=== PATIENT | male | born 1970 | race Caucasian/White ===

== ENCOUNTER 2018-05-10 00:32 | Emergency (ER) | payer OTHER ==
[~2018-05-10] VITALS: Ht 182.9 cm; Wt 99.8 kg
--- NOTE | 2018-05-10 00:50 | NUR ---
Pt came in c/o productive cough x 4 days, states he has been feeling "horrible" these past few days. Pt denies any fever, diarrhea, N/V. He is A, O/4, moves all extremities without difficulty, no respiratory distress noted.
[2018-05-10 01:57] VITALS: BP 129/63
--- NOTE | 2018-05-10 01:58 | NUR ---
Patient discharged to home in stable condition. Written and verbal after care instructions given. Patient verbalizes understanding of instruction. Pt ambulatory with a steady gait, VSS.
== END 2018-05-10 01:58 | disposition home or self-care (01) ==
LOC: ER 00:33
DX: J06.9 Acute upper respiratory infection, unspecified (principal); Z98.890 Other specified postprocedural states
CPT/HCPCS: 71045-TC; 87400

== ENCOUNTER 2018-05-10 06:06 | Emergency (ER) | payer OTHER ==
[~2018-05-10] VITALS: Ht 182.9 cm; Wt 99.8 kg
--- NOTE | 2018-05-10 06:12 | NUR ---
URINE SENT TO LAB
--- NOTE | 2018-05-10 06:15 | NUR ---
PT BIBSELF C/C DEPRESSION. PT STATES "I DONT FEEL SAFE". -SI, -HI, -A/V HALLUCINATIONS. PT IN BED 13. NAD NOTED. RESP EVEN AND UNLABORED. WILL CONTINUE TO MONITOR.
--- NOTE | 2018-05-10 06:29 | NUR ---
PHLEB AT BEDSIDE FOR LAB DRAW
[2018-05-10 06:44] LABS: BASOPHILS # (AUTO) 0.1 /CMM (0.0-0.2); BASOPHILS % (AUTO) 0.6 % (0.0-2.0); HEMATOCRIT 39 % (39-51); HEMOGLOBIN 13.4 g/dL (13.5-17.5); LYMPHOCYTES % (AUTO) 12.1 % (20.0-44.0); MEAN CORPUSCULAR HGB CONC 34 g/dl (31.0-36.0); MEAN CORPUSCULAR VOLUME 94 fL (80-96); MONOCYTES % (AUTO) 12.4 % (2.0-12.0); NEUTROPHILS # (AUTO) 5.9 /CMM (1.8-8.9); NEUTROPHILS % (AUTO) 70.9 % (43.0-81.0); PLATELET COUNT (AUTO) 253 /CMM (150-450); RED BLOOD CELL COUNT(AUTO) 4.18 MIL/uL (4.5-6.0); WHITE BLOOD COUNT (AUTO) 8.3 K/uL (4.3-11.0)
[2018-05-10 06:50] LABS: APPEARANCE,URINE CLEAR (CLEAR); BILIRUBIN,URINE NEGATIVE (NEGATIVE); BLOOD, URINE NEGATIVE Ery/uL (NEGATIVE); COLOR,URINE YELLOW (YELLOW); KETONES,URINE NEGATIVE (NEGATIVE); LEUKOCYTE ESTERASE ,URINE NEGATIVE (NEGATIVE); NITRITE, URINE NEGATIVE (NEGATIVE); PH,URINE 7.5 (5.0-8.0); PROTEIN,URINE NEGATIVE (NEGATIVE); UGLUCOSE NEGATIVE (NEGATIVE); UROBILINOGEN,URINE 0.2 EU/dL (0.2)
[2018-05-10 06:56] LABS: ALANINE AMINOTRANSFERASE 39 U/L (12-78); ALBUMIN 3.4 g/dL (3.4-5.0); ALCOHOL, BLOOD < 3 mg/dL (0-0); ALKALINE PHOSPHATASE 80 U/L (46-116); ASPARTATE AMINOTRANSFERASE 22 U/L (15-37); BILIRUBIN,DIRECT 0.1 mg/dL (0.0-0.2); BILIRUBIN,TOTAL 0.2 mg/dL (0.2-1.0); CALCIUM, SERUM 8.4 mg/dL (8.5-10.1); CARBON DIOXIDE 27 mmol/L (21-32); CHLORIDE 104 mmol/L (98-107); CREATININE 0.9 mg/dL (0.6-1.3); GLUCOSE 126 mg/dL (74-106); POTASSIUM 3.6 mmol/L (3.5-5.1); SODIUM SERUM 138 mmol/L (136-145); TOTAL PROTEIN, SERUM 6.3 g/dL (6.4-8.2); UREA NITROGEN, BLOOD 9 mg/dL (7-18)
[2018-05-10 07:01] LABS: SALICYLATE 1.2 mg/dL (2.8-20.0)
[2018-05-10 07:02] LABS: ACETAMINOPHEN 0 ug/ml (10-30)
--- NOTE | 2018-05-10 07:12 | NUR ---
REPORT GIVEN TO CORDELL HERCULES RN FOR [facility]
--- NOTE | 2018-05-10 07:20 | NUR ---
RECEIVED REPORT FROM ADRIANA GORDON FOR [facility]. PT IS ASLEEP ON BED, EASILY AROUSABLE, NOT IN RESPIRATORY DISTRESS, AWAITING FOR PSYCH EVAL.
--- NOTE | 2018-05-10 08:38 | NUR ---
CALLED [facility] FOR PT EVALUATION.
--- NOTE | 2018-05-10 10:14 | NUR ---
ANNA TESTING DIRECTOR AT BEDSIDE FOR EVAL.
--- NOTE | 2018-05-10 12:30 | NUR ---
REPORT GIVEN TO [facility] FOR [facility].
[2018-05-10] MEDS ORDERED: LORAZEPAM 1 MG TABLET ONE (12:57)
[2018-05-10] MEDS ORDERED: LORAZEPAM 1 MG TABLET PO ONE (13:00)
--- NOTE | 2018-05-10 13:06 | NUR ---
CALLED [facility] FOR EVAL.
--- NOTE | 2018-05-10 13:20 | NUR ---
[facility] EXPLAINED RESOURCES AND PROVIDED TAP CARD.
--- NOTE | 2018-05-10 13:21 | NUR ---
SW received a call from ADRIANA kumar informing SW that pt. is not suicidal anymore and doesn't want to go to [facility] at this time. SW met with pt. to discuss discharge plan. Pt. is alert and oriented x 4. Pt. was sitting on the bed. Pt. is cooperative and pleasant with SW during the assessment. Pt. is homeless and has been homeless on and off since 2017 after a relationship breakup. Pt. was evaluated by solar development engineer ADRIANA Prescott who assessed pt. Pt. was supposed to go to [facility] on a voluntary basis, however pt. changed his mind. Pt. states he is no longer suicidal and requested homeless long term resources. Pt. states he was at [facility] in [place] attending a drug treatment program, however left after two weeks. Pt. uses methamphetamine and last used 4 to 5 days ago. Pt. drinks a beer occasionally. SW gave pt. the following resources: [facility] [phone] list and explained the pickle solution maker location times and [facility] homeless resource directory Mental Health clinics [facility] [address] [place] [address] [facility] [address] [facility], 2nd [place] [address] Main Number: Adult Full Service Partnership (AFSP): Contact [facility] [address] [facility] MARCOS Patel [address] HOURS: Mon-Tue 8am--7pm [facility] [place], [place] [address] Operation Hours: TUE - TUE 8:00 a.m. - 5:00 p.m. Walk In Hours: MON - TUE 8:00 a.m. - 5:00 p.m. Services by Age: Adults and Older Adults Healthcare Clinics for Homeless patients [facility] [address], [address] [place]. [place] Hours: M, T, Th, F 8:30AM-4:30PM Walk-ins allowed Provide medical screening and pharmacy [facility] [address] [place] [address] Hours M-F 8AM-3:30PM Walk-ins allowed Provide medical screening and pharmacy [facility] [address] [place] [address] Hours 8AM-4:30PM Walk-ins allowed Alcohol and Drug Treatment Programs [facility] Substance Abuse Self-helpline ([facility]) Contact number . Must have Medi-melia or be Med-melia eligible. [facility] [address] [facility] [place] [address] [facility] [address] [facility] [address] [facility] Rehabilitation Program (Scientology based) [address] [facility]. [place] [phone] (Six months program and need to work for 8 hrs per day while in treatment) [facility] (No insurance required) [address] [place] [address] No other social service needs are requested at this time. SW gave pt. TAP card. Homeless Patient Waiver Form was signed by the pt. and placed in pt's chart. No other social service needs are requested at this time. DALIA Lawrence and ADRIANA Pal were updated on pt's discharge plan.
--- NOTE | 2018-05-10 13:50 | NUR ---
Patient discharged to home in stable condition. Written and verbal after care instructions given. Patient verbalizes understanding of instruction.
[2018-05-10 14:21] VITALS: BP 121/68
== END 2018-05-10 14:23 | disposition home or self-care (01) ==
LOC: ER 06:10
DX: F32.9 Major depressive disorder, single episode, unspecified (principal); F12.10 Cannabis abuse, uncomplicated; F15.10 Other stimulant abuse, uncomplicated; Z59.0 Homelessness; Z98.890 Other specified postprocedural states
CPT/HCPCS: 36415; 80048-TC; 80076-TC; 80305; 81000-TC; 85025-TC; G0480

== ENCOUNTER 2018-06-13 20:52 | Emergency (ER) | payer OTHER ==
[~2018-06-13] VITALS: Ht 182.9 cm; Wt 99.8 kg
--- NOTE | 2018-06-13 21:26 | NUR ---
BIBS. C/O "HAVING SUICIDAL THOUGHTS, ANXIOUS, PLAN TO JUMP OFF BUILDING" +SI -HI -HALLUCINATIONS. VOLUNTARY CHECK INTO [facility]. PT IS CALM AND COOPERATIVE, AMB, VSS, RR EVEN AND UNLABORED ON RA. READY FOR EVAL.
[2018-06-13 21:39] LABS: BASOPHILS # (AUTO) 0.2 /CMM (0.0-0.2); EOSINOPHILS % (AUTO) 4.7 % (0.0-6.0); HEMATOCRIT 43 % (39-51); HEMOGLOBIN 14.3 g/dL (13.5-17.5); LYMPHOCYTES # (AUTO) 1.5 /CMM (0.8-4.8); LYMPHOCYTES % (AUTO) 17.5 % (20.0-44.0); MEAN CORPUSCULAR HGB CONC 33 g/dl (31.0-36.0); MEAN CORPUSCULAR VOLUME 97 fL (80-96); MONOCYTES # (AUTO) 0.9 /CMM (0.1-1.30); MONOCYTES % (AUTO) 10.5 % (2.0-12.0); NEUTROPHILS # (AUTO) 5.7 /CMM (1.8-8.9); NEUTROPHILS % (AUTO) 65.3 % (43.0-81.0); PLATELET COUNT (AUTO) 260 /CMM (150-450); RED BLOOD CELL COUNT(AUTO) 4.43 MIL/uL (4.5-6.0); WHITE BLOOD COUNT (AUTO) 8.8 K/uL (4.3-11.0)
[2018-06-13 21:40] LABS: APPEARANCE,URINE Clear (CLEAR); BILIRUBIN,URINE Negative (NEGATIVE); BLOOD, URINE Negative Ery/uL (NEGATIVE); COLOR,URINE Yellow (YELLOW); KETONES,URINE Negative (NEGATIVE); LEUKOCYTE ESTERASE ,URINE Negative (NEGATIVE); NITRITE, URINE Negative (NEGATIVE); PH,URINE 5.5 (5.0-8.0); PROTEIN,URINE Negative (NEGATIVE); UGLUCOSE Negative (NEGATIVE); UROBILINOGEN,URINE 0.2 EU/dL (0.2)
[2018-06-13 22:08] LABS: ALANINE AMINOTRANSFERASE 30 U/L (12-78); ALBUMIN 3.8 g/dL (3.4-5.0); ALCOHOL, BLOOD < 3 mg/dL (0-0); ALKALINE PHOSPHATASE 97 U/L (46-116); ASPARTATE AMINOTRANSFERASE 22 U/L (15-37); BILIRUBIN,DIRECT 0.1 mg/dL (0.0-0.2); BILIRUBIN,TOTAL 0.2 mg/dL (0.2-1.0); CALCIUM, SERUM 8.6 mg/dL (8.5-10.1); CARBON DIOXIDE 31 mmol/L (21-32); CHLORIDE 106 mmol/L (98-107); CREATININE 1.1 mg/dL (0.6-1.3); GLUCOSE 79 mg/dL (74-106); POTASSIUM 3.5 mmol/L (3.5-5.1); SODIUM SERUM 145 mmol/L (136-145); TOTAL PROTEIN, SERUM 6.9 g/dL (6.4-8.2); UREA NITROGEN, BLOOD 13 mg/dL (7-18)
[2018-06-13 22:13] LABS: ACETAMINOPHEN 0 ug/ml (10-30); SALICYLATE 0.9 mg/dL (2.8-20.0)
--- NOTE | 2018-06-13 22:46 | NUR ---
GAVE PT WARM BLANKETS FOR COMFORT. NO COMPLAINTS AT THIS TIME. RESTING COMFORTABLY IN BED. WILL CONT TO MONITOR.
--- NOTE | 2018-06-13 23:16 | NUR ---
CAR WIPER ART AT BEDSIDE FOR EVAL
--- NOTE | 2018-06-13 23:31 | NUR ---
RECEIVED REPORT FROM ADRIANA AVILA, GREGORIA MASSEUR/MASSEUSE AT BEDSIDE FOR EVAL.
--- NOTE | 2018-06-14 01:34 | NUR ---
CHETNA PANTOJA FROM [facility] PT ACCEPTED AT [facility]. ACCEPTING MD: DR. FLEMING. RN REPORT [phone]
--- NOTE | 2018-06-14 01:50 | NUR ---
MIREILLE JACINTO ETA OVERNIGHT HOUSEPERSON TO [facility] 3:30AM TRIP [phone]
--- NOTE | 2018-06-14 02:16 | NUR ---
PT IS ASLEEP ON BED EASILY AROUSABLE.
--- NOTE | 2018-06-14 02:41 | NUR ---
REPORT GIVEN TO ATA OF [facility].
[2018-06-14 04:15] VITALS: BP 139/79
== END 2018-06-14 04:17 ==
LOC: ER 20:55
DX: F32.9 Major depressive disorder, single episode, unspecified (principal); F41.9 Anxiety disorder, unspecified; Z98.890 Other specified postprocedural states
CPT/HCPCS: 36415; 80048; 80076; 80305; 80307; 80329; 81001; 85025; 99285; A4606; G0480; 81000-TC

== ENCOUNTER 2018-11-13 20:38 | Emergency (ER) | payer OTHER ==
[~2018-11-13] VITALS: Ht 182.9 cm; Wt 99.8 kg
--- NOTE | 2018-11-13 20:47 | NUR ---
C/C +SI, -PLAN, -HI, -HALLUCINATIONS, STOPPED MEDS X2WKS AGO. STATES HAVING SUICIDAL IDEATIONS BEFORE, BUT NEVER ACTING ON THEM. WAS IN REHAB WHEN STOPPED MEDS. NO MEDICAL COMPLAINTS AT THIS TIME. SUICIDE PRECAUTIONS IMPLEMENTED. PT READY FOR EVAL.
--- NOTE | 2018-11-13 20:49 | NUR ---
URINE COLLECTED AND SENT TO LAB.
[2018-11-13 21:14] LABS: BASOPHILS % (AUTO) 0.9 % (0.0-2.0); EOSINOPHILS % (AUTO) 7.2 % (0.0-6.0); HEMATOCRIT 39 % (39-51); HEMOGLOBIN 13.4 g/dL (13.5-17.5); LYMPHOCYTES # (AUTO) 1.7 /CMM (0.8-4.8); LYMPHOCYTES % (AUTO) 32.2 % (20.0-44.0); MEAN CORPUSCULAR HGB CONC 34 g/dl (31.0-36.0); MEAN CORPUSCULAR VOLUME 96 fL (80-96); MONOCYTES # (AUTO) 0.8 /CMM (0.1-1.30); MONOCYTES % (AUTO) 14.1 % (2.0-12.0); NEUTROPHILS # (AUTO) 2.4 /CMM (1.8-8.9); NEUTROPHILS % (AUTO) 45.6 % (43.0-81.0); PLATELET COUNT (AUTO) 238 /CMM (150-450); RED BLOOD CELL COUNT(AUTO) 4.05 MIL/uL (4.5-6.0); WHITE BLOOD COUNT (AUTO) 5.4 K/uL (4.3-11.0)
[2018-11-13] MEDS ORDERED: LORAZEPAM 1 MG TABLET ONE (21:15)
[2018-11-13 21:20] LABS: APPEARANCE,URINE Clear (CLEAR); BILIRUBIN,URINE SMALL (NEGATIVE); BLOOD, URINE Negative Ery/uL (NEGATIVE); COLOR,URINE Yellow (YELLOW); KETONES,URINE 15 (NEGATIVE); LEUKOCYTE ESTERASE ,URINE Negative (NEGATIVE); NITRITE, URINE Negative (NEGATIVE); PROTEIN,URINE Negative (NEGATIVE); UGLUCOSE Negative (NEGATIVE); UROBILINOGEN,URINE 0.2 EU/dL (0.2)
[2018-11-13 21:21] LABS: CALCIUM, SERUM 8.4 mg/dL (8.5-10.1); CARBON DIOXIDE 30 mmol/L (21-32); CHLORIDE 110 mmol/L (98-107); CREATININE 1.1 mg/dL (0.6-1.3); GLUCOSE 118 mg/dL (74-106); POTASSIUM 3.9 mmol/L (3.5-5.1); SODIUM SERUM 147 mmol/L (136-145); UREA NITROGEN, BLOOD 10 mg/dL (7-18)
[2018-11-13 21:29] LABS: ALANINE AMINOTRANSFERASE 34 U/L (12-78); ALBUMIN 3.3 g/dL (3.4-5.0); ALKALINE PHOSPHATASE 85 U/L (46-116); ASPARTATE AMINOTRANSFERASE 20 U/L (15-37); BILIRUBIN,TOTAL 0.1 mg/dL (0.2-1.0)
[2018-11-13] MEDS ORDERED: LORAZEPAM 1 MG TABLET PO ONE (21:30)
[2018-11-13 21:32] LABS: SALICYLATE 0.8 mg/dL (2.8-20.0)
[2018-11-13 21:34] LABS: ACETAMINOPHEN < 5 ug/ml (10-30); ALCOHOL, BLOOD < 3 mg/dL (0-0)
--- NOTE | 2018-11-13 22:26 | NUR ---
Patient is resting comfortably in bed with eyes closed. Easily aroused. VSS
[2018-11-13] MEDS ORDERED: OLANZAPINE 10 MG VIAL IM ONE (22:30)
[2018-11-13] MEDS ORDERED: LORAZEPAM INJ 2 MG/ML VIAL IM ONE (22:30)
[2018-11-13] MEDS ORDERED: diphenhydrAMINE HCL 50 MG/ML VIAL IM ONE (22:30)
--- NOTE | 2018-11-13 22:35 | NUR ---
PER DEWAYNE FARMER, HOLD MEDICATIONS FOR NOW
--- NOTE | 2018-11-13 22:55 | NUR ---
information faxed to [facility]. per Janette no beds available.
[2018-11-13] MEDS ORDERED: IV NS 0.9% 1,000 ML BAG IV ONE (23:00)
[2018-11-14] MEDS ORDERED: OLANZAPINE 10 MG VIAL IM ONE (07:27)
[2018-11-14] MEDS ORDERED: LORAZEPAM INJ 2 MG/ML VIAL ONE (07:27)
[2018-11-14] MEDS ORDERED: diphenhydrAMINE HCL 50 MG/ML VIAL ONE (07:27)
--- NOTE | 2018-11-14 07:37 | NUR ---
ATIVAN 1MG LEFT (OTHER 1MG WASTED AT OMNICE). CLARIFIED W , PATIENT DOES NOT NEED MEDICATION. WITNESSED WASTE BY JOSH ESTEBAN.
--- NOTE | 2018-11-14 07:37 | NUR ---
Ativan 1mg Non Adminestered wasted (Witnessed)
--- NOTE | 2018-11-14 08:45 | NUR ---
Social service consult requested by Dr. Pineda for suicidal ideations. Pt. is a 48 year old male who came to [facility] for suicidal ideations. SW met with pt. bedside. Pt. is alert and oriented x 4. Pt. is cooperative and pleasant with SW during the assessment. Pt. states he has been homeless for the past 2 weeks. Pt. has a past medical history of bipolar disorder and methamphetamine abuse. Pt. stated that he has been feeling increasingly suicidal and expresses a plan to run into traffic. He states that he has been noncompliant with his psych meds which include Wellbutrin, trazodone and gabapentin. Pt. is a methamphetamine user and last used 3 days ago. Pt. states he is having some hallucinations both visual and auditory from using methamphetamines. Pt. receives food stamps and General Relief. Pt. expressed wanting to to Voluntary to [facility]. ADRIANA Walters faxed clinicals to Debbi at [facility].
--- NOTE | 2018-11-14 09:00 | NUR ---
CLINICALS AND FACESHEET FAXED TO ADEBAYO AT [facility].
--- NOTE | 2018-11-14 10:01 | NUR ---
DELMA contacted Debbi in intake at [facility] regarding clinical packet that was faxed to her. Debbi informed SW that she did receive it, however it is under review by the nursing microfilm duplicating unit supervisor. Debbi informed SW she is reviewing 6 referrals and it will take some time.
--- NOTE | 2018-11-14 11:25 | NUR ---
TRANSFER INFO: [facility], ACCEPTED BY MD OROZCO, RN FOR REPORT [phone] EXT [phone], AMBULANCE ETA 1230
--- NOTE | 2018-11-14 12:33 | NUR ---
REPORT GIVEN TO ITA WRIGHT OF [facility]
[2018-11-14] MEDS ORDERED: LORAZEPAM 1 MG TABLET ONE (13:52)
[2018-11-14 13:54] VITALS: BP 112/66
--- NOTE | 2018-11-14 13:54 | NUR ---
PT APPEARS ANXIOUS. REQUESTED FOR SOME ATIVAN. DR HARRIS MADE AWARE. ATIVAN 1MG PO GIVEN PER ER MD VERBAL ORDER.
[2018-11-14] MEDS ORDERED: LORAZEPAM 1 MG TABLET PO ONE (14:00)
--- NOTE | 2018-11-14 14:00 | NUR ---
AMBULANCE UPDATED ETA 2149
--- NOTE | 2018-11-14 14:20 | NUR ---
IV removed. Catheter intact and site benign. Pressure and 4x4 applied to site. No bleeding noted. [facility] in stable condition. Written and verbal after care instructions given. Patient verbalizes understanding of instruction. patient will be transferred to [facility]
== END 2018-11-14 14:20 ==
LOC: ER 20:39
DX: R45.851 Suicidal ideations (principal); F19.10 Other psychoactive substance abuse, uncomplicated; F41.9 Anxiety disorder, unspecified; Z98.890 Other specified postprocedural states
CPT/HCPCS: 36415; 80048; 80076; 80305; 80307; 80329; 81001; 85025; 99285; G0480; J2060; J7030; 81000-TC; J1200; J3490

== ENCOUNTER 2019-01-15 01:10 | Emergency (ER) | payer OTHER ==
[~2019-01-15] VITALS: Ht 182.9 cm; Wt 95.3 kg
--- NOTE | 2019-01-15 01:20 | NUR ---
URINE COLLECTED AND SENT TO LAB
--- NOTE | 2019-01-15 01:23 | NUR ---
BIBSELF C/O SUICIDAL IDEATION WITH PLAN TO RUN INTO TRAFFIC. DENIES HI. PT AAOX4. CALM AND COOPERATIVE. RESPIRATIONS EVEN AND UNLABORED. VITAL SIGNS STABLE. SKIN INTACT. ABLE TO AMBULATE WITH STEADY GAIT. NO ACUTE DISTRESS NOTED AT THIS TIME. SUICIDAL PRECAUTIONS INITIATED, BELONGINGS COLLECTED AND PT PLACED IN GOWN. SITTER AT BEDSIDE. WILL CONTINUE TO MONITOR
--- NOTE | 2019-01-15 01:24 | NUR ---
WORD PROCESSING SUPERVISOR AT BEDSIDE FOR BLOOD DRAW
[2019-01-15 01:33] LABS: BASOPHILS # (AUTO) 0.1 /CMM (0.0-0.2); HEMATOCRIT 41 % (39-51); HEMOGLOBIN 14.1 g/dL (13.5-17.5); LYMPHOCYTES # (AUTO) 2.2 /CMM (0.8-4.8); LYMPHOCYTES % (AUTO) 29.6 % (20.0-44.0); MEAN CORPUSCULAR HGB CONC 34 g/dl (31.0-36.0); MEAN CORPUSCULAR VOLUME 94 fL (80-96); MONOCYTES # (AUTO) 0.9 /CMM (0.1-1.30); MONOCYTES % (AUTO) 12.8 % (2.0-12.0); NEUTROPHILS # (AUTO) 3.8 /CMM (1.8-8.9); NEUTROPHILS % (AUTO) 51.6 % (43.0-81.0); PLATELET COUNT (AUTO) 334 /CMM (150-450); RED BLOOD CELL COUNT(AUTO) 4.39 MIL/uL (4.5-6.0); WHITE BLOOD COUNT (AUTO) 7.4 K/uL (4.3-11.0)
[2019-01-15 01:36] LABS: APPEARANCE,URINE Clear (CLEAR); BILIRUBIN,URINE Negative (NEGATIVE); BLOOD, URINE Negative Ery/uL (NEGATIVE); COLOR,URINE Yellow (YELLOW); KETONES,URINE Negative (NEGATIVE); LEUKOCYTE ESTERASE ,URINE Negative (NEGATIVE); NITRITE, URINE Negative (NEGATIVE); PH,URINE 5.5 (5.0-8.0); PROTEIN,URINE Negative (NEGATIVE); UGLUCOSE Negative (NEGATIVE); UROBILINOGEN,URINE 0.2 EU/dL (0.2)
[2019-01-15 01:42] LABS: CALCIUM, SERUM 8.6 mg/dL (8.5-10.1); CARBON DIOXIDE 33 mmol/L (21-32); CHLORIDE 105 mmol/L (98-107); CREATININE 1.3 mg/dL (0.6-1.3); GLUCOSE 94 mg/dL (74-106); POTASSIUM 3.9 mmol/L (3.5-5.1); SODIUM SERUM 145 mmol/L (136-145); UREA NITROGEN, BLOOD 21 mg/dL (7-18)
[2019-01-15 01:47] LABS: ALANINE AMINOTRANSFERASE 34 U/L (12-78); ALBUMIN 3.9 g/dL (3.4-5.0); ALCOHOL, BLOOD < 3 mg/dL (0-0); ALKALINE PHOSPHATASE 87 U/L (46-116); ASPARTATE AMINOTRANSFERASE 27 U/L (15-37); BILIRUBIN,DIRECT 0.1 mg/dL (0.0-0.2); BILIRUBIN,TOTAL 0.3 mg/dL (0.2-1.0); TOTAL PROTEIN, SERUM 7.2 g/dL (6.4-8.2)
[2019-01-15 01:48] LABS: ACETAMINOPHEN 0 ug/ml (10-30); SALICYLATE 0.8 mg/dL (2.8-20.0)
--- NOTE | 2019-01-15 02:18 | NUR ---
Patient is resting comfortably in bed with eyes closed. Easily aroused. VSS
--- NOTE | 2019-01-15 05:12 | NUR ---
PER [facility] INTAKE. CASE BEING REVIEWED BY RN SUP. WILL RETURN CALL ONCE BEDS AVAILABLE.
[2019-01-15 05:31] VITALS: BP 121/77
--- NOTE | 2019-01-15 05:32 | NUR ---
Patient is resting comfortably in bed with eyes closed. Easily aroused. VSS. -SOB NOTED. SITTER AT BEDSIDE.
--- NOTE | 2019-01-15 08:15 | NUR ---
DELMA contacted Oren at [facility] following up regarding clinical referral packet that was sent to [facility] for voluntary admission. Oren informed DELMA he will follow up with [facility] and call DELMA back.
--- NOTE | 2019-01-15 08:36 | NUR ---
DELMA received a call back from [email or web address] stating, pt's clinicals are being reviewed and pt. will most likely be accepted at [facility]. DELMA updated ADRIANA Walters with aforementioned information.
--- NOTE | 2019-01-15 08:55 | NUR ---
PT ACCEPTED AT [facility], PENDING TRANSFER INFORMATION
--- NOTE | 2019-01-15 09:01 | NUR ---
PATIENT SPOKE WITH DR SUE, VERBALIZED THAT HE DOES NOT WANT TO BE TRANSFERRED TO [facility] ANYMORE AND PREFERS TO BE DISCHARGED FROM ER, PATIENT VERBALIZED HE WILL MAKE HIS OWN ARRANGEMENTS. ORDERS FOR DC GIVEN BY
--- NOTE | 2019-01-15 09:09 | NUR ---
WAITING ON A BED AT [facility],SPOKE WITH KARLA,INTAKE
--- NOTE | 2019-01-15 09:40 | NUR ---
Patient discharged to home in stable condition. Written and verbal after care instructions given. Patient verbalizes understanding of instruction. all belongings complete on discharge. no report of missing inventory.
== END 2019-01-15 09:41 | disposition home or self-care (01) ==
LOC: ER 01:12
DX: R45.851 Suicidal ideations (principal); F41.9 Anxiety disorder, unspecified; Z98.890 Other specified postprocedural states
CPT/HCPCS: 36415; 80048; 80076; 80305; 80307; 80329; 81001; 85025; 99284; G0480; 81000-TC

== ENCOUNTER 2019-01-23 00:45 | Emergency (ER) | payer OTHER ==
[~2019-01-23] VITALS: Ht 182.9 cm; Wt 97.5 kg
--- NOTE | 2019-01-23 01:00 | NUR ---
Note jan in EDM - 01/23/19 at 0704 by AWAIS TO ER BED 6 AMBULATORY C/O "I NEED HELP GETTING INTO A CORRECTION, I NEED TO GET MY LIFE TOGETHER, IF YOU GUYS CAN HELP ME". PT DENIES SI OR HI. "IF I GET HELP I'M NOT SUCIDAL". PT PREFERS TO GO TO [facility] IN [place]. PT CALM AND COOPERATIVE A TTHIS TIME. PT DENIES SI OR HI. PENDING ER MD SALAZAR.
--- NOTE | 2019-01-23 01:00 | NUR ---
TO ER BED 6 AMBULATORY C/O "I NEED HELP GETTING INTO A RESIDENTIAL, I NEED TO GET MY LIFE TOGETHER, IF YOU GUYS CAN HELP ME". PT DENIES SI OR HI. PT P[facility] IN [place]. PT CALM AND COOPERATIVE A TTHIS TIME. PT DENIES SI OR HI. PENDING ER MD SALAZAR.
--- NOTE | 2019-01-23 02:01 | NUR ---
ER MD AT BEDSIDE TO EVAL PT WITH ORDERS RECEIVED.
--- NOTE | 2019-01-23 02:35 | NUR ---
SPOKE TO CARTER AT [facility] AND WAS ADVICE TO CALL IN THE MORNING AROUND 7:30-08:00AM TO SPEAK TO THE SHELF STOCKER REGARDING PLACEMENT.
[2019-01-23 02:45] LABS: BASOPHILS # (AUTO) 0.1 /CMM (0.0-0.2); BASOPHILS % (AUTO) 1.4 % (0.0-2.0); EOSINOPHILS % (AUTO) 4.4 % (0.0-6.0); HEMATOCRIT 41 % (39-51); HEMOGLOBIN 13.7 g/dL (13.5-17.5); LYMPHOCYTES % (AUTO) 31.5 % (20.0-44.0); MEAN CORPUSCULAR HGB CONC 34 g/dl (31.0-36.0); MEAN CORPUSCULAR VOLUME 94 fL (80-96); MONOCYTES # (AUTO) 0.7 /CMM (0.1-1.30); MONOCYTES % (AUTO) 10.3 % (2.0-12.0); NEUTROPHILS # (AUTO) 3.4 /CMM (1.8-8.9); NEUTROPHILS % (AUTO) 52.4 % (43.0-81.0); PLATELET COUNT (AUTO) 315 /CMM (150-450); RED BLOOD CELL COUNT(AUTO) 4.34 MIL/uL (4.5-6.0); WHITE BLOOD COUNT (AUTO) 6.4 K/uL (4.3-11.0)
[2019-01-23 03:20] LABS: ACETAMINOPHEN 0 ug/ml (10-30); ALANINE AMINOTRANSFERASE 41 U/L (12-78); ALCOHOL, BLOOD < 3 mg/dL (0-0); ALKALINE PHOSPHATASE 81 U/L (46-116); ASPARTATE AMINOTRANSFERASE 22 U/L (15-37); BILIRUBIN,DIRECT 0.1 mg/dL (0.0-0.2); BILIRUBIN,TOTAL 0.5 mg/dL (0.2-1.0); CALCIUM, SERUM 9.1 mg/dL (8.5-10.1); CARBON DIOXIDE 30 mmol/L (21-32); CHLORIDE 106 mmol/L (98-107); CREATININE 1.1 mg/dL (0.6-1.3); GLUCOSE 93 mg/dL (74-106); SALICYLATE 0.6 mg/dL (2.8-20.0); SODIUM SERUM 142 mmol/L (136-145); TOTAL PROTEIN, SERUM 7.4 g/dL (6.4-8.2); UREA NITROGEN, BLOOD 20 mg/dL (7-18)
--- NOTE | 2019-01-23 03:49 | NUR ---
PT ASLEEP, NO ACUTE DISTRESS NOTED, RESP EVEN AND UNLABORED. CALL LLIGHT WITHIN REACH. WILL CONTINUE TO MONITOR.
--- NOTE | 2019-01-23 05:48 | NUR ---
PT REMAINS ASLEEP, EASILY AROUSABLE, NO ACUTE DISTRESS NOTED, RESP EVEN AND UNLABORED. CALL LLIGHT WITHIN REACH. WILL CONTINUE TO MONITOR. PT MEDICALLY CLEARED FOR DISCHARGE PER ER MD. AWAITING FINANCIAL CONSULTANT IN AM FOR PT PLACEMENT.
[2019-01-23 07:48] VITALS: BP 117/72
--- NOTE | 2019-01-23 07:48 | NUR ---
Patient given written and verbal discharge instructions. Patient verbalizes understanding of instructions. Patient is ambulatory with steady gait. Refuses offer of senior living placement. Patient given list of available shelters in surrounding area.
--- NOTE | 2019-01-23 08:32 | NUR ---
disc pad knockout worker met with the pt. in the ED waiting room. Pt. is alert and oriented x 4. Pt. is very pleasant and cooperative with SW. Pt. stated he has been homeless for the past 2 years since his car was impounded. Pt. wants to go to [facility]. DELMA informed pt. that [facility] does not have a contract with [facility]. Pt. understood. SW encouraged pt. to go to [facility] to link with services. Pt. said he is familiar with it and knows where it is. DELMA offered pt. longterm placement, however pt. declined stating, [facility] is not a good place for him to go. Pt. was provided with the following homeless longterm/homeless resources: [facility] located at [address] ; [facility], [address] [place] [address], L. A MD ; [facility], [address], L. [place] ; [facility] Homeless Resource Directory which includes food stamps, transitional housing, showers and hot meals etc; Mental Health clinics such as [facility] ; [facility] ; Health clinics;[facility] and Alcohol treatment centers such as [facility], ; [facility] Substance Abuse Hotline and [facility] . Pt. was provided with a TAP card. No other social service requests are required at this time.
== END 2019-01-23 07:49 | disposition home or self-care (01) ==
LOC: ER 00:45
DX: Z00.8 Encounter for other general examination (principal); F41.9 Anxiety disorder, unspecified; F31.9 Bipolar disorder, unspecified; Z98.890 Other specified postprocedural states
CPT/HCPCS: 36415; 80048; 80076; 80305; 80307; 80329; 85025; 99283; G0480

== ENCOUNTER 2019-02-01 22:05 | Emergency (ER) | payer OTHER ==
[~2019-02-01] VITALS: Ht 182.9 cm; Wt 97.5 kg
[2019-02-01] MEDS ORDERED: OLANZAPINE 5 MG TABLET ONE (22:47)
[2019-02-01] MEDS: OLANZAPINE 5 MG TABLET PO ONE (22:49)
[2019-02-01 22:58] LABS: BASOPHILS # (AUTO) 0.1 /CMM (0.0-0.2); BASOPHILS % (AUTO) 2.2 % (0.0-2.0); EOSINOPHILS % (AUTO) 6.3 % (0.0-6.0); HEMATOCRIT 38 % (39-51); LYMPHOCYTES % (AUTO) 34.1 % (20.0-44.0); MEAN CORPUSCULAR HGB CONC 34 g/dl (31.0-36.0); MEAN CORPUSCULAR VOLUME 94 fL (80-96); MONOCYTES # (AUTO) 0.6 /CMM (0.1-1.30); NEUTROPHILS # (AUTO) 2.7 /CMM (1.8-8.9); NEUTROPHILS % (AUTO) 46.4 % (43.0-81.0); PLATELET COUNT (AUTO) 323 /CMM (150-450); RED BLOOD CELL COUNT(AUTO) 4.08 MIL/uL (4.5-6.0); WHITE BLOOD COUNT (AUTO) 5.7 K/uL (4.3-11.0)
[2019-02-01 23:13] LABS: CALCIUM, SERUM 8.4 mg/dL (8.5-10.1); CARBON DIOXIDE 30 mmol/L (21-32); CHLORIDE 109 mmol/L (98-107); GLUCOSE 97 mg/dL (74-106); SODIUM SERUM 143 mmol/L (136-145); UREA NITROGEN, BLOOD 18 mg/dL (7-18)
[2019-02-01 23:17] LABS: ALANINE AMINOTRANSFERASE 23 U/L (12-78); ALBUMIN 3.4 g/dL (3.4-5.0); ALCOHOL, BLOOD < 3 mg/dL (0-0); ALKALINE PHOSPHATASE 76 U/L (46-116); ASPARTATE AMINOTRANSFERASE 12 U/L (15-37); BILIRUBIN,DIRECT 0.1 mg/dL (0.0-0.2); BILIRUBIN,TOTAL 0.1 mg/dL (0.2-1.0); TOTAL PROTEIN, SERUM 6.4 g/dL (6.4-8.2)
[2019-02-01 23:18] LABS: ACETAMINOPHEN 0 ug/ml (10-30); SALICYLATE 0.6 mg/dL (2.8-20.0)
--- NOTE | 2019-02-01 23:21 | NUR ---
BIB SELF C/O "IM SUICIDAL AND I'M GOING TO KILL MYSELF ANYWAY I CAN" -SOB AOX4. VSS. AMBULATORY
[2019-02-01 23:37] LABS: APPEARANCE,URINE Clear (CLEAR); BILIRUBIN,URINE SMALL (NEGATIVE); BLOOD, URINE Negative Ery/uL (NEGATIVE); COLOR,URINE Dark (YELLOW); KETONES,URINE Trace (NEGATIVE); LEUKOCYTE ESTERASE ,URINE Negative (NEGATIVE); NITRITE, URINE Negative (NEGATIVE); PH,URINE 6.5 (5.0-8.0); PROTEIN,URINE Negative (NEGATIVE); UGLUCOSE Negative (NEGATIVE); UROBILINOGEN,URINE 0.2 EU/dL (0.2)
--- NOTE | 2019-02-02 00:29 | NUR ---
Clinical info faxed to [facility].
--- NOTE | 2019-02-02 00:40 | NUR ---
Daria [facility] Comfort Advisor advised no beds available at [place], [place], or [place] at this time.
--- NOTE | 2019-02-02 01:23 | NUR ---
Patient is resting comfortably in bed with eyes closed. Easily aroused. VSS
--- NOTE | 2019-02-02 02:32 | NUR ---
Pt resting supine in bed w/ resp even & unlabored, able to turn self in bed w/ no acute distress noted. Bed low to ground w/ siderails up for safety. Will continue to monitor.
--- NOTE | 2019-02-02 03:50 | NUR ---
Patient is resting comfortably in bed with eyes closed. Easily aroused. VSS
--- NOTE | 2019-02-02 05:50 | NUR ---
[facility] AMB[facility] ETA 0830.
--- NOTE | 2019-02-02 06:09 | NUR ---
REPORT GIVEN TO TIP WRIGHT AT [facility].
--- NOTE | 2019-02-02 06:21 | NUR ---
BREAKFAST TRAY ORDERED FOR THE PT.
--- NOTE | 2019-02-02 07:42 | NUR ---
PROVIDED MEAL TRAY FOR PATIENT, TOLERATING PO WELL.
[2019-02-02 09:40] VITALS: BP 109/57
--- NOTE | 2019-02-02 09:53 | NUR ---
Patient picked up by [facility] in stable condition, patient will be brought to [facility]. Written and verbal after care instructions given. Patient verbalizes understanding of instruction.
== END 2019-02-02 09:57 ==
LOC: ER 22:08
DX: R45.851 Suicidal ideations (principal); F19.10 Other psychoactive substance abuse, uncomplicated; F41.9 Anxiety disorder, unspecified; F31.9 Bipolar disorder, unspecified; F12.10 Cannabis abuse, uncomplicated; F15.10 Other stimulant abuse, uncomplicated; Z98.890 Other specified postprocedural states
CPT/HCPCS: 36415; 80048; 80076; 80305; 80307; 80329; 81001; 85025; 99285; G0480; 81000-TC

== ENCOUNTER 2019-03-03 19:57 | Emergency (ER) | payer OTHER ==
[~2019-03-03] VITALS: Ht 182.9 cm; Wt 95.3 kg
--- NOTE | 2019-03-03 20:30 | NUR ---
BIBS WALKED IN TO ER. TO ER BED 15. AAOX4. NO RESP DISTRESS NOTED. AMBULATORY. CAME IN FOR SUICIDAL IDEATION W/ PLAN OF JUMPING OFF A BUILDING. PT DENIES HI. PT STATES THAT HE IS FEELING DEPRESSED BECAUSE OF THE HOLIDAY SEASON. PT ADMITS TO HOMELESSNESS. PT ADMITS USING MARIJUANA. PTS BELONGAINGS PLACED IN LOCKER LOCATED IN UTILITY ROOM. PT STRIPPED OFF CLOTHING, VISUALLY INSPECTED FOR CONTRABANDS AND GOWN. WAS AT BED SIODE FOR EVAL. ORDERS RECEIVED, NOTED AND CARRIED OUT. URINE COLLECTED AND SENT TO LAB. 1:1 SITTER AT BEDSIDE
[2019-03-03 20:34] LABS: APPEARANCE,URINE Clear (CLEAR); BILIRUBIN,URINE Negative (NEGATIVE); BLOOD, URINE Negative Ery/uL (NEGATIVE); COLOR,URINE Yellow (YELLOW); KETONES,URINE Negative (NEGATIVE); LEUKOCYTE ESTERASE ,URINE Negative (NEGATIVE); NITRITE, URINE Negative (NEGATIVE); PH,URINE 8.5 (5.0-8.0); PROTEIN,URINE Negative (NEGATIVE); UGLUCOSE Negative (NEGATIVE); UROBILINOGEN,URINE 0.2 EU/dL (0.2)
[2019-03-03 20:43] LABS: BASOPHILS # (AUTO) 0.1 /CMM (0.0-0.2); BASOPHILS % (AUTO) 0.6 % (0.0-2.0); EOSINOPHILS % (AUTO) 4.8 % (0.0-6.0); HEMATOCRIT 37 % (39-51); HEMOGLOBIN 12.4 g/dL (13.5-17.5); LYMPHOCYTES # (AUTO) 1.9 /CMM (0.8-4.8); LYMPHOCYTES % (AUTO) 17.5 % (20.0-44.0); MEAN CORPUSCULAR HGB CONC 33 g/dl (31.0-36.0); MEAN CORPUSCULAR VOLUME 94 fL (80-96); MONOCYTES # (AUTO) 0.8 /CMM (0.1-1.30); MONOCYTES % (AUTO) 7.3 % (2.0-12.0); NEUTROPHILS # (AUTO) 7.8 /CMM (1.8-8.9); NEUTROPHILS % (AUTO) 69.8 % (43.0-81.0); PLATELET COUNT (AUTO) 268 /CMM (150-450); RED BLOOD CELL COUNT(AUTO) 3.95 MIL/uL (4.5-6.0); WHITE BLOOD COUNT (AUTO) 11.1 K/uL (4.3-11.0)
[2019-03-03 20:51] LABS: CALCIUM, SERUM 8.5 mg/dL (8.5-10.1); CARBON DIOXIDE 32 mmol/L (21-32); CHLORIDE 109 mmol/L (98-107); CREATININE 0.9 mg/dL (0.6-1.3); GLUCOSE 95 mg/dL (74-106); POTASSIUM 3.9 mmol/L (3.5-5.1); SODIUM SERUM 145 mmol/L (136-145); UREA NITROGEN, BLOOD 11 mg/dL (7-18)
[2019-03-03 20:57] LABS: ACETAMINOPHEN 0 ug/ml (10-30); ALANINE AMINOTRANSFERASE 35 U/L (12-78); ALBUMIN 3.1 g/dL (3.4-5.0); ALCOHOL, BLOOD < 3 mg/dL (0-0); ALKALINE PHOSPHATASE 69 U/L (46-116); ASPARTATE AMINOTRANSFERASE 22 U/L (15-37); BILIRUBIN,TOTAL 0.2 mg/dL (0.2-1.0); TOTAL PROTEIN, SERUM 5.8 g/dL (6.4-8.2)
[2019-03-03 20:58] LABS: SALICYLATE 0.8 mg/dL (2.8-20.0)
--- NOTE | 2019-03-04 00:02 | NUR ---
Patient is resting comfortably in bed with eyes closed. Easily aroused. VSS. SITTER AT BEDSIDE. GIVEN FOOD AND DRINK.
--- NOTE | 2019-03-04 02:50 | NUR ---
Patient is resting comfortably in bed with eyes closed. Easily aroused. VSS. SITTER AT BEDSIDE.
--- NOTE | 2019-03-04 04:12 | NUR ---
PER SHIBI [facility] INTAKE. UNABLE TO CONFIRM INSURANCE AT THIS TIME. ONCE INSURANCE SYSTEM IS UP, WILL CALL BACK WITH UPDATES.
--- NOTE | 2019-03-04 09:19 | NUR ---
CALLED [facility]. WAS INFORMED THAT NURSING SUPERVISIOR NEEDS TO APPROVE A BED
--- NOTE | 2019-03-04 09:28 | NUR ---
SPOKE TO JULIAN AT [facility] INTAKE. ACCEPTED TO [facility], BUT AWAITING BED ASSIGNMENT
--- NOTE | 2019-03-04 11:47 | NUR ---
PATIENT VERBALIZED HE'S NO LONGER SUICIDAL AT THIS TIME. DR. MACEDO MADE AWARE.
--- NOTE | 2019-03-04 12:23 | NUR ---
PATIENT DENIES SI/HI AT THIS TIME.
--- NOTE | 2019-03-04 12:38 | NUR ---
Patient given written and verbal discharge instructions. Patient verbalizes understanding of instructions. Patient is ambulatory with steady gait. Refuses offer of detention placement. Patient given list of available shelters in surrounding area.
[2019-03-04 12:40] VITALS: BP 128/92
== END 2019-03-04 12:40 | disposition home or self-care (01) ==
LOC: ER 20:00
DX: F32.9 Major depressive disorder, single episode, unspecified (principal); R45.851 Suicidal ideations; F12.10 Cannabis abuse, uncomplicated; F41.9 Anxiety disorder, unspecified; Z98.890 Other specified postprocedural states
CPT/HCPCS: 36415; 80048; 80076; 80305; 80307; 80329; 81001; 85025; 99284; G0480; 81000-TC

== ENCOUNTER 2019-03-28 14:56 | Emergency (ER) | payer OTHER ==
[~2019-03-28] VITALS: Ht 182.9 cm; Wt 79.4 kg
--- NOTE | 2019-03-28 15:41 | NUR ---
PATIENT ARRIVED AT UNIT AMBULATORY. WITH C/O TOOTHACHE TO RIGHT LOWER MOLAR. AWAITING
[2019-03-28] MEDS ORDERED: BUPIVACAINE 0.5 % PF 150 MG/30 ML VIAL ONE (16:23)
[2019-03-28] MEDS ORDERED: BUPIVACAINE 0.5 % PF 150 MG/30 ML VIAL IJ ONE (16:30)
[2019-03-28 16:45] VITALS: BP 122/70
--- NOTE | 2019-03-28 16:45 | NUR ---
Patient discharged to home in stable condition. Written and verbal after care instructions given. Patient verbalizes understanding of instruction.
== END 2019-03-28 16:46 | disposition home or self-care (01) ==
LOC: ER 14:58
DX: K08.89 Other specified disorders of teeth and supporting structures (principal); Z98.890 Other specified postprocedural states
CPT/HCPCS: 99283; J3490

== ENCOUNTER 2019-03-28 23:17 | Emergency (ER) | payer OTHER ==
[~2019-03-28] VITALS: Ht 182.9 cm; Wt 95.3 kg
[2019-03-28 23:17] VITALS: BP 107/53
[2019-03-28] MEDS ORDERED: ACETAMINOPHEN ES 500 MG TABLET PO ONE (23:30)
[2019-03-28] MEDS ORDERED: IBUPROFEN 400 MG TABLET PO ONE (23:30)
[2019-03-28] MEDS ORDERED: ACETAMINOPHEN ES 500 MG TABLET ONE (23:35)
[2019-03-28] MEDS ORDERED: IBUPROFEN 400 MG TABLET ONE (23:36)
--- NOTE | 2019-03-28 23:47 | NUR ---
Patient discharged to home in stable condition. Written and verbal after care instructions given. Patient verbalizes understanding of instruction. Pt ambulatory with a steady gait
== END 2019-03-28 23:48 | disposition home or self-care (01) ==
LOC: ER 23:22
DX: K08.89 Other specified disorders of teeth and supporting structures (principal); F41.9 Anxiety disorder, unspecified; F31.9 Bipolar disorder, unspecified; Z98.890 Other specified postprocedural states; Z59.0 Homelessness

== ENCOUNTER 2019-04-24 19:32 | Emergency (ER) | payer OTHER ==
[~2019-04-24] VITALS: Ht 182.9 cm; Wt 95.3 kg
--- NOTE | 2019-04-24 20:20 | NUR ---
PT AAOX4. AMBULATORY. C/O PLAN TO JUMP IN FRONT OF BUS, NO HI, SMOKE MARIJUANA 1 HOUR AGO. PLACED IN GOWN, VSS. CLOTHES PLACED IN LOCKER.
[2019-04-24 20:47] LABS: BASOPHILS % (AUTO) 0.8 % (0.0-2.0); EOSINOPHILS % (AUTO) 1.3 % (0.0-6.0); HEMATOCRIT 38 % (39-51); HEMOGLOBIN 12.7 g/dL (13.5-17.5); LYMPHOCYTES % (AUTO) 23.2 % (20.0-44.0); MEAN CORPUSCULAR HGB CONC 34 g/dl (31.0-36.0); MEAN CORPUSCULAR VOLUME 94 fL (80-96); MONOCYTES # (AUTO) 0.9 /CMM (0.1-1.30); MONOCYTES % (AUTO) 20.9 % (2.0-12.0); NEUTROPHILS # (AUTO) 2.4 /CMM (1.8-8.9); NEUTROPHILS % (AUTO) 53.8 % (43.0-81.0); PLATELET COUNT (AUTO) 253 /CMM (150-450); RED BLOOD CELL COUNT(AUTO) 4.01 MIL/uL (4.5-6.0); WHITE BLOOD COUNT (AUTO) 4.4 K/uL (4.3-11.0)
[2019-04-24 20:50] LABS: APPEARANCE,URINE Clear (CLEAR); BILIRUBIN,URINE SMALL (NEGATIVE); BLOOD, URINE Negative Ery/uL (NEGATIVE); COLOR,URINE Orange (YELLOW); KETONES,URINE Trace (NEGATIVE); LEUKOCYTE ESTERASE ,URINE Negative (NEGATIVE); NITRITE, URINE Negative (NEGATIVE); PH,URINE 6.5 (5.0-8.0); PROTEIN,URINE Negative (NEGATIVE); UGLUCOSE Negative (NEGATIVE); UROBILINOGEN,URINE 0.2 EU/dL (0.2)
[2019-04-24 21:03] LABS: ALANINE AMINOTRANSFERASE 32 U/L (12-78); ALBUMIN 3.3 g/dL (3.4-5.0); ALCOHOL, BLOOD < 3 mg/dL (0-0); ALKALINE PHOSPHATASE 76 U/L (46-116); ASPARTATE AMINOTRANSFERASE 23 U/L (15-37); BILIRUBIN,TOTAL 0.1 mg/dL (0.2-1.0); CALCIUM, SERUM 8.7 mg/dL (8.5-10.1); CARBON DIOXIDE 29 mmol/L (21-32); CHLORIDE 108 mmol/L (98-107); CREATININE 1.1 mg/dL (0.6-1.3); GLUCOSE 113 mg/dL (74-106); SODIUM SERUM 141 mmol/L (136-145); TOTAL PROTEIN, SERUM 6.2 g/dL (6.4-8.2); UREA NITROGEN, BLOOD 8 mg/dL (7-18)
[2019-04-24 21:08] LABS: ACETAMINOPHEN < 10 ug/ml (10-30); SALICYLATE 1.3 mg/dL (2.8-20.0)
--- NOTE | 2019-04-24 21:33 | NUR ---
Patient is resting comfortably in bed . Easily aroused. VSS.
[2019-04-24 22:15] LABS: BAND % (MANUAL) 3 % (0.0-5.0); LYMPHOCYTES % (MANUAL) 25 % (16-48); MONOCYTES % (MANUAL) 17 % (0-11.0); NEUTROPHILS % (MANUAL) 55 (42-76)
--- NOTE | 2019-04-24 23:36 | NUR ---
received a call from [facility] intake: Pt has got accepted at [facility] accepting MD: Dr. Mckeon # to give report: , ext: [phone]
--- NOTE | 2019-04-24 23:44 | NUR ---
CALLED [facility], ETA [phone]
--- NOTE | 2019-04-25 00:08 | NUR ---
[facility] ETA [id number], TRIP #[id number]
[2019-04-25 01:51] VITALS: BP 104/67
--- NOTE | 2019-04-25 01:58 | NUR ---
REPORT GIVEN TO EMT. PT TRANSFER SHEET WELL.
== END 2019-04-25 02:18 ==
LOC: ER 19:34
DX: R45.851 Suicidal ideations (principal); F15.10 Other stimulant abuse, uncomplicated; F41.9 Anxiety disorder, unspecified; Z98.890 Other specified postprocedural states; Z59.0 Homelessness
CPT/HCPCS: 36415; 80048; 80076; 80305; 80307; 80329; 81001; 85025; 99285; A6403; G0480; 81000-TC

== ENCOUNTER 2019-05-02 20:13 | Emergency (ER) | payer OTHER ==
[~2019-05-02] VITALS: Ht 182.9 cm; Wt 95.3 kg
--- NOTE | 2019-05-02 20:30 | NUR ---
PT BIBSELF C/O SI WITH PLAN TO OVERDOSE ON PILLS. DENIES HI AT THIS TIME. PT AAOX4. APPEARS DISSHEVELED. VITAL SIGNS STABLE. RESPIRATIONS EVEN AND UNLABORED. SKIN WARM AND INTACT. AMBULATORY WITH STEADY GAIT. PT PLACED IN GOWN. BELONGINGS COLLECTED AND PLACED IN PATIENT LOCKER. SITTER AT BEDSIDE. WILL CONTINUE TO MONITOR
--- NOTE | 2019-05-02 21:30 | NUR ---
URINE SAMPLE COLLECTED AND SENT TO LAB.
[2019-05-02 21:56] LABS: APPEARANCE,URINE Clear (CLEAR); BILIRUBIN,URINE Negative (NEGATIVE); BLOOD, URINE Negative Ery/uL (NEGATIVE); COLOR,URINE Yellow (YELLOW); KETONES,URINE Trace (NEGATIVE); LEUKOCYTE ESTERASE ,URINE Negative (NEGATIVE); NITRITE, URINE Negative (NEGATIVE); PROTEIN,URINE Negative (NEGATIVE); UGLUCOSE Negative (NEGATIVE); UROBILINOGEN,URINE 0.2 EU/dL (0.2)
--- NOTE | 2019-05-02 21:57 | NUR ---
BINDER CASER AT [facility] FOR BLOOD DRAW.
[2019-05-02 22:05] LABS: BASOPHILS # (AUTO) 0.1 /CMM (0.0-0.2); EOSINOPHILS % (AUTO) 2.9 % (0.0-6.0); HEMATOCRIT 39 % (39-51); HEMOGLOBIN 13.5 g/dL (13.5-17.5); LYMPHOCYTES # (AUTO) 2.7 /CMM (0.8-4.8); LYMPHOCYTES % (AUTO) 31.6 % (20.0-44.0); MEAN CORPUSCULAR HGB CONC 34 g/dl (31.0-36.0); MEAN CORPUSCULAR VOLUME 93 fL (80-96); MONOCYTES # (AUTO) 0.9 /CMM (0.1-1.30); MONOCYTES % (AUTO) 10.5 % (2.0-12.0); NEUTROPHILS # (AUTO) 4.7 /CMM (1.8-8.9); PLATELET COUNT (AUTO) 312 /CMM (150-450); RED BLOOD CELL COUNT(AUTO) 4.24 MIL/uL (4.5-6.0); WHITE BLOOD COUNT (AUTO) 8.7 K/uL (4.3-11.0)
[2019-05-02 22:06] LABS: BACTERIA,URINE Rare /HPF (None Seen); RBC,URINE 0-2 /HPF (0-2); SQUAMOUS EPITHELIAL CELL,UR Rare /HPF (None Seen); WBC,URINE 0-2 /HPF (0-3)
[2019-05-02 22:14] LABS: CALCIUM, SERUM 8.6 mg/dL (8.5-10.1); CARBON DIOXIDE 30 mmol/L (21-32); CHLORIDE 109 mmol/L (98-107); GLUCOSE 79 mg/dL (74-106); POTASSIUM 4.2 mmol/L (3.5-5.1); SODIUM SERUM 143 mmol/L (136-145); UREA NITROGEN, BLOOD 21 mg/dL (7-18)
[2019-05-02 22:19] LABS: ALANINE AMINOTRANSFERASE 16 U/L (12-78); ALBUMIN 3.3 g/dL (3.4-5.0); ALCOHOL, BLOOD < 3 mg/dL (0-0); ALKALINE PHOSPHATASE 71 U/L (46-116); ASPARTATE AMINOTRANSFERASE 16 U/L (15-37); BILIRUBIN,TOTAL 0.1 mg/dL (0.2-1.0); TOTAL PROTEIN, SERUM 6.3 g/dL (6.4-8.2)
[2019-05-02 22:21] LABS: ACETAMINOPHEN 0 ug/ml (10-30)
--- NOTE | 2019-05-02 23:54 | NUR ---
PT RESTING IN BED COMFORTABLY. VITAL SIGNS STABLE. SITTER AT BEDSIDE. WILL CONTINUE TO MONITOR
--- NOTE | 2019-05-03 02:46 | NUR ---
PT RESTING COMFORTABLY IN BED. VITAL SIGNS STABLE. SITTER AT BEDSIDE. WILL CONTINUE TO MONITOR
--- NOTE | 2019-05-03 04:34 | NUR ---
PT ACCEPTED TO [facility] BY DR FLEMING. # FOR REPORT [phone]
--- NOTE | 2019-05-03 04:43 | NUR ---
CALL THE CAR CALLED FOR TRANSPORT. #[phone]
--- NOTE | 2019-05-03 04:50 | NUR ---
[facility] AMBUL[facility] ETA [id number]
--- NOTE | 2019-05-03 04:57 | NUR ---
REPORT GIVEN TO RAKAN FROM [facility]
--- NOTE | 2019-05-03 06:02 | NUR ---
CALLED [facility], DELAYED 15 MINUTES
--- NOTE | 2019-05-03 06:23 | NUR ---
REPORT GIVEN TO [facility] FOR [facility]SPORTATION [facility]
--- NOTE | 2019-05-03 06:37 | NUR ---
Patient discharged to home in stable condition. Written and verbal after care instructions given. Patient verbalizes understanding of instruction.Pt ambulatory with a steady gait. Pt provided with food and water prior to discharge
--- NOTE | 2019-05-03 06:37 | NUR ---
PT STATES HE IS NO LONGER SUICIDAL. AAOX4. AWARE, PT MEDICALLY CLEARED FOR DISCHARGE
--- NOTE | 2019-05-03 06:39 | NUR ---
PT C/O SORE THROAT. AWARE. WILL ADMINSTER 600MG IBUPROFEN PRIOR TO DISCHARGE
[2019-05-03] MEDS ORDERED: IBUPROFEN 600 MG TABLET PO ONE ×2 (06:40→07:00)
[2019-05-03 06:43] VITALS: BP 116/55
== END 2019-05-03 06:44 | disposition home or self-care (01) ==
LOC: ER 20:13
DX: R45.851 Suicidal ideations (principal); F19.10 Other psychoactive substance abuse, uncomplicated; F41.9 Anxiety disorder, unspecified; F31.9 Bipolar disorder, unspecified; F17.200 Nicotine dependence, unspecified, uncomplicated; Z98.890 Other specified postprocedural states
CPT/HCPCS: 36415; 80048; 80076; 80305; 80307; 80329; 81001; 85025; 99284; G0480; 81000-TC

== ENCOUNTER 2019-11-03 00:21 | Emergency (ER) | payer OTHER ==
[~2019-11-03] VITALS: Ht 182.9 cm; Wt 97.5 kg
[2019-11-03 00:29] VITALS: BP 128/84
== END 2019-11-03 02:55 | disposition home or self-care (01) ==
LOC: ER 00:21
DX: R09.81 Nasal congestion (principal); F41.9 Anxiety disorder, unspecified; F31.9 Bipolar disorder, unspecified; Z98.890 Other specified postprocedural states

== ENCOUNTER 2020-05-02 22:34 | Emergency (ER) | payer MEDICAID ==
[~2020-05-02] VITALS: Ht 182.9 cm; Wt 97.5 kg
--- NOTE | 2020-05-02 23:15 | NUR ---
BIBSELF C/O DEPRESSION WITH THOUGHT OF HARMING SELF, NO PLAN. DENIES HI/HALLUCINATIONS. PT AAOX4. CALM AND COOPERATIVE. VITAL SIGNS STABLE. RESPIRATIONS EVEN UNLABORED. NO ACUTE DISTRESS NOTED AT THIS TIME. SUICIDAL PRECAUTIONS INITIATED. PT PLACED IN GOWN, BELONGINGS COLLECTED AND PLACED IN PATIENT LOCKER. SITTER AT BEDSIDE, WILL CONTINUE TO MONITOR
--- NOTE | 2020-05-02 23:25 | NUR ---
URINE COLLECTED AND SENT TO LAB
--- NOTE | 2020-05-02 23:28 | NUR ---
COVID SWAB COLLECTED AND SENT TO LAB
--- NOTE | 2020-05-02 23:30 | NUR ---
DISTRICT SALES LEADER AT BEDSIDE FOR BLOOD DRAW
[2020-05-02 23:42] LABS: BASOPHILS % (AUTO) 0.2 % (0.0-2.0); EOSINOPHILS % (AUTO) 4.8 % (0.0-6.0); HEMATOCRIT 41 % (39-51); HEMOGLOBIN 14.4 g/dL (13.5-17.5); LYMPHOCYTES # (AUTO) 2.4 /CMM (0.8-4.8); LYMPHOCYTES % (AUTO) 33.4 % (20.0-44.0); MEAN CORPUSCULAR HGB CONC 35 g/dl (31.0-36.0); MEAN CORPUSCULAR VOLUME 94 fL (80-96); MONOCYTES # (AUTO) 0.8 /CMM (0.1-1.30); MONOCYTES % (AUTO) 10.9 % (2.0-12.0); NEUTROPHILS # (AUTO) 3.6 /CMM (1.8-8.9); NEUTROPHILS % (AUTO) 50.7 % (43.0-81.0); PLATELET COUNT (AUTO) 301 /CMM (150-450); RED BLOOD CELL COUNT(AUTO) 4.38 MIL/uL (4.5-6.0); WHITE BLOOD COUNT (AUTO) 7.1 K/uL (4.3-11.0)
[2020-05-02 23:45] LABS: BILIRUBIN,URINE SMALL (NEGATIVE); COLOR,URINE YELLOW (YELLOW); LEUKOCYTE ESTERASE ,URINE NEGATIVE (NEGATIVE); NITRITE, URINE NEGATIVE (NEGATIVE); PH,URINE 5.5 (5.0-8.0); PROTEIN,URINE NEGATIVE (NEGATIVE); UGLUCOSE NEGATIVE (NEGATIVE); UROBILINOGEN,URINE 0.2 EU/dL (0.2)
[2020-05-02 23:49] LABS: CALCIUM, SERUM 8.3 mg/dL (8.5-10.1); CARBON DIOXIDE 31 mmol/L (21-32); CHLORIDE 108 mmol/L (98-107); GLUCOSE 102 mg/dL (74-106); POTASSIUM 3.9 mmol/L (3.5-5.1); SODIUM SERUM 146 mmol/L (136-145); UREA NITROGEN, BLOOD 15 mg/dL (7-18)
[2020-05-02 23:58] LABS: ALANINE AMINOTRANSFERASE 41 U/L (12-78); ALBUMIN 3.4 g/dL (3.4-5.0); ALCOHOL, BLOOD < 3 mg/dL (0-0); ALKALINE PHOSPHATASE 93 U/L (46-116); ASPARTATE AMINOTRANSFERASE 18 U/L (15-37); BILIRUBIN,TOTAL 0.1 mg/dL (0.2-1.0); TOTAL PROTEIN, SERUM 6.4 g/dL (6.4-8.2)
[2020-05-03 00:02] LABS: ACETAMINOPHEN 0 ug/ml (10-30)
--- NOTE | 2020-05-03 00:25 | NUR ---
CALL FROM LAB. RAPID COVID NEGATIVE.
[2020-05-03] MEDS ORDERED: TRAZ-257 PO (04:46)
[2020-05-03] MEDS ORDERED: QUET200T PO (04:46)
--- NOTE | 2020-05-03 04:55 | NUR ---
PATIENT DENIES BEING SUICIDAL NOR HOMICIDAL. MD AND CHARGE NURSE NOTIFIED.
--- NOTE | 2020-05-03 06:14 | NUR ---
PERSONAL BELONGINGS RETURNED TO THE PATIENT.
--- NOTE | 2020-05-03 06:18 | NUR ---
Patient discharged to home in stable condition. Written and verbal after care instructions given. Patient verbalizes understanding of instruction.
[2020-05-03 06:19] VITALS: BP 122/74
== END 2020-05-03 06:19 | disposition home or self-care (01) ==
LOC: ER 22:39
DX: R45.851 Suicidal ideations (principal); F31.9 Bipolar disorder, unspecified; F41.9 Anxiety disorder, unspecified; Z79.899 Other long term (current) drug therapy; Z20.822 Contact with and (suspected) exposure to COVID-19
CPT/HCPCS: 36415; 80048; 80076; 80299; 80307; 80320; 81003; 85025; 87426; 99285; C9803; G0480

== ENCOUNTER 2022-01-01 04:04 | Emergency (ER) | payer MEDICAID ==
[~2022-01-01] VITALS: Ht 182.9 cm; Wt 97.5 kg
[~2022-01-01 04:04] MED LIST: QUET200T PO; TRAZ-257 PO
--- NOTE | 2022-01-01 04:14 | NUR ---
ACE FROM STREET C/O S/I. PLAN TO OD ON HEROINE. REQUEST VOLUNTARY ADMISSION TO PSYCH FACILITY. PT A/OX4 TOLERATING R/A WELL WITH NO SOB; RESP EVEN AND NON LABORED. AMBULATORY WITH STEADY GAIT. SKIN INTACT. PT CHANGED IN GOWN, BELONGINGS COLLECTED AND PLACED IN LOCKER, SECURITY AT PT'S BEDSIDE FOR WANDING. SITTER AT PT'S BEDSIDE
--- NOTE | 2022-01-01 04:24 | NUR ---
URINE COLLECTED AND SENT TO LAB
--- NOTE | 2022-01-01 04:25 | NUR ---
COVID ANTIGEN SWAB COLLECTED AND SENT TO LAB
[2022-01-01 05:17] LABS: BASOPHILS % (AUTO) 0.5 % (0.0-2.0); HEMATOCRIT 40 % (39-51); HEMOGLOBIN 13.1 g/dL (13.5-17.5); LYMPHOCYTES # (AUTO) 1.3 K/uL (0.8-4.8); LYMPHOCYTES % (AUTO) 25.9 % (20.0-44.0); MEAN CORPUSCULAR HGB CONC 33 g/dl (31.0-36.0); MEAN CORPUSCULAR VOLUME 96 fL (80-96); MONOCYTES # (AUTO) 0.6 K/uL (0.1-1.30); MONOCYTES % (AUTO) 11.7 % (2.0-12.0); NEUTROPHILS # (AUTO) 2.8 K/uL (1.8-8.9); NEUTROPHILS % (AUTO) 56.9 % (43.0-81.0); PLATELET COUNT (AUTO) 322 K/uL (150-450); RED BLOOD CELL COUNT(AUTO) 4.12 MIL/uL (4.5-6.0); WHITE BLOOD COUNT (AUTO) 4.9 K/uL (4.3-11.0)
[2022-01-01 05:21] LABS: BILIRUBIN,URINE NEGATIVE (NEGATIVE); COLOR,URINE YELLOW (YELLOW); LEUKOCYTE ESTERASE ,URINE NEGATIVE (NEGATIVE); NITRITE, URINE NEGATIVE (NEGATIVE); PH,URINE 5.5 (5.0-8.0); PROTEIN,URINE NEGATIVE (NEGATIVE); UGLUCOSE NEGATIVE (NEGATIVE); UROBILINOGEN,URINE 0.2 EU/dL (0.2)
[2022-01-01 05:41] LABS: BACTERIA,URINE Rare /HPF (None Seen); RBC,URINE 0-2 /HPF (0-2); SQUAMOUS EPITHELIAL CELL,UR Few /HPF (None Seen)
[2022-01-01 05:57] LABS: CALCIUM, SERUM 8.4 mg/dL (8.5-10.1); CARBON DIOXIDE 33 mmol/L (21-32); CHLORIDE 110 mmol/L (98-107); GLUCOSE 62 mg/dL (74-106); POTASSIUM 3.6 mmol/L (3.5-5.1); SODIUM SERUM 146 mmol/L (136-145); UREA NITROGEN, BLOOD 14 mg/dL (7-18)
[2022-01-01 06:02] LABS: ALANINE AMINOTRANSFERASE 24 U/L (12-78); ALBUMIN 3.4 g/dL (3.4-5.0); ALCOHOL, BLOOD < 3 mg/dL (0-0); ALKALINE PHOSPHATASE 71 U/L (46-116); ASPARTATE AMINOTRANSFERASE 15 U/L (15-37); BILIRUBIN,DIRECT 0.1 mg/dL (0.0-0.2); BILIRUBIN,TOTAL 0.1 mg/dL (0.2-1.0); TOTAL PROTEIN, SERUM 6.5 g/dL (6.4-8.2)
[2022-01-01 06:14] LABS: ACETAMINOPHEN 0 ug/ml (10-30)
--- NOTE | 2022-01-01 08:17 | NUR ---
COVID NEGATIVE RESULTS FAXED TO [facility]
[2022-01-01] MEDS: QUETIAPINE FUMARATE 100 MG TABLET PO SCH (10:27)
--- NOTE | 2022-01-01 11:00 | NUR ---
Boat Operator Consult [facility] consult requested for pt. for voluntary admission to [facility]. Pt. is a 51 y.o. male who was admitted for C/O suicidal ideation with a plan to OD on heroine. SW met with pt. at bedside. The pt. appears unkempt and is alert and orientated x4. Pt. made eye contact and remained calm and cooperative throughout assessment. The patient had depressed mood and flat affect. SW assessed for SI/ HI (suicidal/ homicidal ideation) in which pt. denied any plans, means, or intent. During assessment, pt. stated he had no family, or persons of and reported not having a place to stay. Pt. stated he is independent with ambulation and is receiving [employer] and GR. Per pt. patient report, he has used meth and cannabis. Pt. reported a hx of psychiatric dx including Bipolar Disorder and Depression, pt. reported no visual or auditory hallucinations. DC plan: When asked about pt.'s plans after being discharged pt. he did not have a place to stay. [facility] offered skilled nursing placement and pt. was agreeable. [facility] provided pt. with TAP card and directions to go to [facility] ([address] [place] [address]). Pt is agreeable to plan. SW provided pt. with skilled nursing resources and addictions resources in which pt. accepted them. Pt. signed the homeless waiver and was placed in his chart. Year-round shelters: [facility] [address] [place], [place] [id number] ; [facility] [address] [place] [address]; [facility] [id number] [facility]. [facility] [address] Hygiene: [facility]: [address] [place] ; [facility] [address] [facility] ; [facility] [address] . Food Resources: [place] [facility] at [facility]- [address] [place]; Meet Each Need with Dignity (REGENCY MERIDIAN) [address] [facility]; [facility] [address] [facility]; [facility] [address] [facility]. Mental Health resources provided: [facility] [address] [place], [place] [address] ; [facility] [address] [facility] [address], [place] [address] ; [facility] [address] [place], [place] [id number] ; [facility] [address] [place], [place] [id number] Healthcare Clinics: [facility] [address] [facility], [address] [place]. [place] ; [facility] [address] [facility] [address] [place] [address]; [facility] [address] [facility] [place] [address] 129) [phone] Counseling--Outpatient [facility] [address] [facility], [place] [address] (Specializes in in-depth psychotherapy for emotional distress: anxiety, depression, interpersonal conflicts, life transitions, childhood abuse) [facility] [address] [place] [address] (Assist with solving problem marital difficulties, separation & divorce, aging parents, & grief, chronic & terminal illness) [facility] [address] [place] [address] (Deal with loss & grief, anxiety, marital difficulties) Homebound/Mental Health Services [address], [address] [place], [place] [id number] (Provide in-home mental services to people who are incapable of leaving their homes) [facility] Senior Service[facility] Center [address] [place], [place] [id number] [facility] [address] [place] [address] PSYCHIATRIC OUTPATIENT SERVICES [facility] Partial Hospitalization and Intensive Outpatient Program (Managed Care and [place] Only)[address] [facility] [phone] [facility] Partial Hospitalization and Outpatient [address] [place], [place] [phone] REGINALD YOANDY [facility] [place] [address] [place], [place] [phone] [facility] Partial Hospitalization and Outpatient [id number] Emeli[facility]iley [facility] Reginald Calles, [phone] Substance Abuse resources provided included: [facility] Substance Abuse Self-Helpline ([facility]) ; [facility] [address] [facility]. [place] [address] ; [facility] [address] [facility] [address] ; [facility] [address] [facility] [phone] ; [facility] [address] [facility] [address] ; [facility] [address] [facility] [address] ; [facility] [address] [facility] [phone] ; [facility] Substance Abuse Helpl[facility] ; [facility] ; [facility] [place]; Lisa [facility] [place]; [facility] [place]; [facility] Reginald Desiryoandy; [place] [facility]; [facility]; [facility] Anna; [facility], [facility]. Jose G Reis; Alcoholics Anonymous -[facility]; Chaim ; Marijuana Anonymous -[facility]; Narcotics Anonymous www.na.org;
--- NOTE | 2022-01-01 16:42 | NUR ---
ACCEPTED TO [facility] UNDER THE CARE OF DR SCHMIDT REPORT [phone]
--- NOTE | 2022-01-01 18:50 | NUR ---
[facility] CALLED FOR TRANSPORT, ETA 90 MIN PER JOSEFA.
--- NOTE | 2022-01-01 19:40 | NUR ---
Pt verbalized that he is feeling better and nolonger feeling suicidal. Md was made aware and spoke with the patient. Pt is cleared by the MD to leave the facility.
--- NOTE | 2022-01-01 20:01 | NUR ---
Patient discharged to home in stable condition. Written and verbal after care instructions given. Patient verbalizes understanding of instruction. Pt ambulatory with a steady gait
[2022-01-01 20:02] VITALS: BP 102/54
== END 2022-01-01 20:02 | disposition home or self-care (01) ==
LOC: ER 04:15
DX: R45.851 Suicidal ideations (principal); F19.10 Other psychoactive substance abuse, uncomplicated; Z20.822 Contact with and (suspected) exposure to COVID-19; F31.9 Bipolar disorder, unspecified; F41.9 Anxiety disorder, unspecified; Z59.00 Homelessness unspecified; Z79.899 Other long term (current) drug therapy
CPT/HCPCS: 99285; 85025; 80048; 80076; 81001; 36415; 87426; 80143; 80320; 80307; C9803; G0480

== ENCOUNTER 2022-01-16 04:55 | Emergency (ER) | payer MEDICAID ==
[~2022-01-16] VITALS: Ht 182.9 cm; Wt 97.5 kg
--- NOTE | 2022-01-16 05:05 | NUR ---
ACE FROM STREET C/O SI WITH PLAN TO OD. REQUESTING [facility]OLUNTARY ADMIT TO [facility]. PT A/OX4. TOLERATING R/A WELL WITH NO RESP DISTRESS. SKIN INTACT. AMBULATORY WITH STEADY GAIT. CHANGED IN GOWN, BELONGINGS COLLECTED, AND WANDED BY SECURITY. SAFETY MEASURES IN PLACE.
--- NOTE | 2022-01-16 05:10 | NUR ---
COVID ANTIGEN SWAB COLLECTED AND SENT TO LAB
--- NOTE | 2022-01-16 05:10 | NUR ---
URINE COLLECTED AND SENT TO LAB
--- NOTE | 2022-01-16 05:40 | NUR ---
MEDICAL CODER AT PT'S BEDSIDE
[2022-01-16 05:51] LABS: BASOPHILS % (AUTO) 0.7 % (0.0-2.0); EOSINOPHILS % (AUTO) 13.9 % (0.0-6.0); HEMATOCRIT 39 % (39-51); HEMOGLOBIN 13.1 g/dL (13.5-17.5); LYMPHOCYTES # (AUTO) 2.6 K/uL (0.8-4.8); LYMPHOCYTES % (AUTO) 35.1 % (20.0-44.0); MEAN CORPUSCULAR HGB CONC 34 g/dl (31.0-36.0); MEAN CORPUSCULAR VOLUME 93 fL (80-96); MONOCYTES # (AUTO) 0.7 K/uL (0.1-1.30); MONOCYTES % (AUTO) 9.7 % (2.0-12.0); NEUTROPHILS % (AUTO) 40.6 % (43.0-81.0); PLATELET COUNT (AUTO) 254 K/uL (150-450); WHITE BLOOD COUNT (AUTO) 7.3 K/uL (4.3-11.0)
[2022-01-16 06:05] LABS: ALANINE AMINOTRANSFERASE 24 U/L (12-78); ALBUMIN 3.7 g/dL (3.4-5.0); ALCOHOL, BLOOD < 3 mg/dL (0-0); ALKALINE PHOSPHATASE 87 U/L (46-116); ASPARTATE AMINOTRANSFERASE 17 U/L (15-37); BILIRUBIN,DIRECT 0.1 mg/dL (0.0-0.2); BILIRUBIN,TOTAL 0.3 mg/dL (0.2-1.0); CALCIUM, SERUM 8.6 mg/dL (8.5-10.1); CARBON DIOXIDE 33 mmol/L (21-32); CHLORIDE 105 mmol/L (98-107); CREATININE 1.2 mg/dL (0.6-1.3); GLUCOSE 88 mg/dL (74-106); SODIUM SERUM 142 mmol/L (136-145); TOTAL PROTEIN, SERUM 6.8 g/dL (6.4-8.2); UREA NITROGEN, BLOOD 22 mg/dL (7-18)
[2022-01-16 06:06] LABS: ACETAMINOPHEN 0 ug/ml (10-30)
[2022-01-16 06:13] LABS: BILIRUBIN,URINE NEGATIVE (NEGATIVE); COLOR,URINE YELLOW (YELLOW); LEUKOCYTE ESTERASE ,URINE NEGATIVE (NEGATIVE); NITRITE, URINE NEGATIVE (NEGATIVE); PROTEIN,URINE NEGATIVE (NEGATIVE); UGLUCOSE NEGATIVE (NEGATIVE); UROBILINOGEN,URINE 0.2 EU/dL (0.2)
--- NOTE | 2022-01-16 07:25 | NUR ---
[facility]
--- NOTE | 2022-01-16 09:40 | NUR ---
PER VERONICA OF [facility] VNYS PT IS ACCEPETED TO [facility] UNDER DR. SPENCER. NUMBER TO GIVE REPORT IS [phone] EXT [phone] NURSE ONEAL. GIVE REPORT PRIOR TO SETTING UP TRANSPORT.
--- NOTE | 2022-01-16 09:46 | NUR ---
[facility] ETA 1200
--- NOTE | 2022-01-16 09:55 | NUR ---
REPORT CALLED TO LEYLA VILLARREAL, SPOKE WITH GILL
--- NOTE | 2022-01-16 12:45 | NUR ---
PT TRANSFERRED TO [facility] VIA [facility], ACCOMPANIED BY 2 ADVANCED DEVELOPER, IN STABLE CONDITION.
[2022-01-16 14:21] VITALS: BP 114/64
== END 2022-01-16 14:21 ==
LOC: ER 05:04
DX: R45.851 Suicidal ideations (principal); Z20.822 Contact with and (suspected) exposure to COVID-19; Z59.00 Homelessness unspecified; F31.9 Bipolar disorder, unspecified; F41.9 Anxiety disorder, unspecified; F25.9 Schizoaffective disorder, unspecified; Z79.899 Other long term (current) drug therapy
CPT/HCPCS: 99285; 85025; 80048; 80076; 81003; 36415; 87426; 80143; 80320; 80307; C9803; G0480